=== PATIENT | female | born 1990 | race Caucasian/White ===

== ENCOUNTER → 2018-03-07 | Outpatient (CLI) | payer OTHER ==
[~2018-03-07] MED LIST: ALBU8HFA2 INH; AZIT250 PO; CEPH500 PO; CIPR500 PO; CYCL10 PO; METPRE4DP PO; Macrodantin100 MG PO; Norco 5-325 Ta1 EACH PO; ONDA8ODT MM; OXYACE5T PO; PHENA200 PO; PROM25 PO; Pyridium200 MG PO; SULTRIDS PO; TRIA80TC TOP
== END | disposition home or self-care (01) ==
LOC: LAB SHORT 14:00 → LAB EV 14:00
DX: N12 Tubulo-interstitial nephritis, not specified as acute or chronic (principal)
CPT/HCPCS: 87077; 87086; 87186

== ENCOUNTER → 2019-08-11 | Outpatient (CLI) | payer OTHER | END | disposition home or self-care (01) | LOC: LAB SHORT 11:45 → LAB EV 11:45 | DX: Z34.91 Encounter for supervision of normal pregnancy, unspecified, first trimester (principal) | CPT/HCPCS: 84702 ==

== ENCOUNTER 2020-01-18 08:18 | Inpatient (IN) | payer OTHER ==
[~2020-01-18] VITALS: Ht 157.5 cm; Wt 78.0 kg
[2020-01-18 09:45] LABS: BASOPHILS ABSOLUTE AUTO 0.02 K/mm3 (0.00-0.23); BASOPHILS PERCENT AUTO 0 % (0-2); EOSINOPHILS ABSOLUTE AUTO 0.01 K/mm3 (0.00-0.68); EOSINOPHILS PERCENT AUTO 0 % (0-6); Hematocrit 31.1 % (33.0-51.0); IMMATURE GRAN ABSOLUTE AUTO 0.08 K/mm3 (0.00-0.10); IMMATURE GRAN PERCENT AUTO 1 % (0-1); LYMPHOCYTES ABSOLUTE AUTO 1.04 K/mm3 (0.84-5.20); LYMPHOCYTES PERCENT AUTO 10 % (21-46); MONOCYTES ABSOLUTE AUTO 0.41 K/mm3 (0.16-1.47); MONOCYTES PERCENT AUTO 4 % (4-13); Mean Corpuscular HGB 23.5 pg (26.0-34.0); Mean Corpuscular HGB Conc 28.9 g/dL (31.5-36.5); Mean Corpuscular Volume 81 fL (80-100); Mean Platelet Volume 10.4 fL (9.1-12.4); NEUTROPHILS ABSOLUTE AUTO 9.19 K/mm3 (1.96-9.15); NEUTROPHILS PERCENT AUTO 86 % (41-73); Platelet Count 303 K/mm3 (150-400); RDW Coefficient Variation 15.2 % (11.7-14.2); RDW Standard Deviation 45.4 fL (35.1-46.3); Red Blood Cell Count 3.83 M/mm3 (3.80-5.20); White Blood Cell Count 10.75 K/mm3 (4.00-11.30)
--- NOTE | 2020-01-18 10:50 | NUR ---
REPT TO Stephan SAINZ RN
--- NOTE | 2020-01-18 16:17 | NUR ---
BACK TO ROOM IN W/C FROM SEEING IN [facility]. NO COMPLAINTS. NOW GOING OUTSIDE TO SEE SOME FAMILY
[2020-01-19 06:30] LABS: Hematocrit 27.7 % (33.0-51.0); Hemoglobin 8.5 g/dL (11.5-16.0); Mean Corpuscular HGB 24.3 pg (26.0-34.0); Mean Corpuscular HGB Conc 30.7 g/dL (31.5-36.5); Mean Corpuscular Volume 79 fL (80-100); Mean Platelet Volume 10.7 fL (9.1-12.4); Platelet Count 299 K/mm3 (150-400); RDW Coefficient Variation 15.2 % (11.7-14.2); RDW Standard Deviation 43.8 fL (35.1-46.3); White Blood Cell Count 18.27 K/mm3 (4.00-11.30)
--- NOTE | 2020-01-19 09:18 | NUR ---
R/T ROOM FROM AMBULATING TO CAFETERIA. NO COMPLAINTS. GOING TO NURSERY TO FEED. WORKING ON D/C PAPERWORK. WILL D/C TO BOARDER WHEN D/C ISNTRUCTIONS COMPLETED
--- NOTE | 2020-01-19 11:57 | NUR ---
UNABLE TO GIVE PORTALS R/T NO ACCESS TO PORTALS AT TIME OF D/C
--- NOTE | 2020-01-19 13:24 | NUR ---
D/C TO BOARDER STATUS
== END 2020-01-19 13:25 | disposition home or self-care (01) | DRG 805 ==
LOC: BC 08:18 → OBS 08:18 → BC 08:32 → OBS 08:32 → BC 10:38
PROVIDERS: Nurse Practitioner Obstetrics & Gynecology; ADMIT Obstetrics & Gynecology
PROC: 10E0XZZ Delivery of Products of Conception, External Approach (ICD-10-PCS; principal; 2020-01-18)
DX: O60.14X0 Preterm labor third trimester with preterm delivery third trimester, not applicable or unspecified (principal); O24.12 Pre-existing type 2 diabetes mellitus, in childbirth; Z37.0 Single live birth; E11.8 Type 2 diabetes mellitus with unspecified complications; Z20.828 Contact with and (suspected) exposure to other viral communicable diseases; Z3A.34 34 weeks gestation of pregnancy; O99.02 Anemia complicating childbirth; D64.9 Anemia, unspecified; O62.3 Precipitate labor; Z88.0 Allergy status to penicillin; Z88.2 Allergy status to sulfonamides; O99.334 Smoking (tobacco) complicating childbirth; F17.210 Nicotine dependence, cigarettes, uncomplicated
CPT/HCPCS: 36415; 85025; 85027; 86850; 86900; 86901; A9270; J0702; J2210; J2590; U0004

== ENCOUNTER → 2020-09-01 | Outpatient (CLI) | payer OTHER ==
[2020-09-02 08:09] LABS: Candida species (DNA Probe) Negative (NEGATIVE); G. vaginalis (DNA Probe) Positive (NEGATIVE); T. vaginalis (DNA Probe) Negative (NEGATIVE)
[2020-09-03 14:11] LABS: CHLAMYDIA BY NAA Negative (Negative); GONOCOCCUS BY NAA Positive (Negative); TRICH VAG BY NAA Negative (Negative)
== END | disposition home or self-care (01) ==
LOC: LAB 13:56 → LAB SHORT 13:56
PROVIDERS: Physician Assistant
DX: R39.15 Urgency of urination (principal); Z20.9 Contact with and (suspected) exposure to unspecified communicable disease
CPT/HCPCS: 87086; 87480; 87491; 87510; 87591; 87660; 87661

== ENCOUNTER 2022-08-14 12:42 | Emergency (ER) | payer OTHER ==
[~2022-08-14] VITALS: Ht 157.5 cm; Wt 72.6 kg
[2022-08-14 12:46] VITALS: BP 140/91
[2022-08-14] MEDS ORDERED: Norco 7.5-3251 EACH PO (15:27)
== END 2022-08-14 14:21 | disposition home or self-care (01) ==
LOC: ER 12:42
DX: T23.251A Burn of second degree of right palm, initial encounter (principal); F17.210 Nicotine dependence, cigarettes, uncomplicated; X19.XXXA Contact with other heat and hot substances, initial encounter; Z88.0 Allergy status to penicillin; Z88.8 Allergy status to other drugs, medicaments and biological substances
CPT/HCPCS: A9270

== ENCOUNTER → 2024-01-29 | Outpatient (CLI) | payer OTHER ==
[~2024-01-29] MED LIST changes: +Norco 7.5-3251 EACH PO
[2024-01-29 14:51] LABS: Bacterial Vaginosis PCR Negative (NEGATIVE); Candida Group, PCR NOT DETECTED (NOT DETECT); Candida glabrata-krusei, PCR NOT DETECTED (NOT DETECT)
[2024-01-30 12:48] LABS: Chlamydia Trachomatis Cervix NOT DETECTED (NOT DETECT); Neisseria Gonorrhoea Cervix NOT DETECTED (NOT DETECT)
== END ==
LOC: LAB 10:46 → LAB SHORT 10:46
PROVIDERS: Chiropractor
DX: R30.0 Dysuria (principal)
CPT/HCPCS: 87086; 87481; 87491; 87591; 87661; 87801